=== PATIENT | female | born 1990 | race Caucasian/White ===

== ENCOUNTER 2016-12-01 13:30 | Emergency (ER) | payer OTHER ==
[2016-12-01 13:42] VITALS: TEMP 97.9
[2016-12-01] MEDS ORDERED: DIPH,PERTUS(ACELL)TETVAC-LF 0.5 ML VIAL IM ONE (13:52)
[2016-12-01] MEDS ORDERED: HYDROcodone/APAP 5-325MG 1 EACH TAB PO STA (13:53)
[2016-12-01 14:21] LABS: Basophils # (A) 0.1 k/uL (0-0.2); Basophils % (A) 0 %; CH 30.8; CHCM 33.7; Eosinophils # (A) 0.3 k/uL (0-0.7); Eosinophils % (A) 2 %; HCT 43.7 % (34.0-46.0); HDW 2.37; HGB 14.5 gm/dL (11.4-16.0); Luc # (Auto) 0.45; Luc % (Auto) 3; Lymphocytes # (A) 2.5 k/uL (1.0-4.8); Lymphocytes % (A) 16 %; MCH 30.5 pg (25.0-35.0); MCHC 33.1 g/dL (31.0-37.0); MCV 92.1 fL (80.0-100.0); Mean Platelet Volume 6.5; Monocytes # (A) 0.9 k/uL (0-1.0); Monocytes % (A) 6 %; Neutrophils # (A) 11.4 k/uL (1.3-7.7); Neutrophils % (A) 74 %; RBC 4.75 m/uL (3.80-5.40); RDW 12.9 % (11.5-15.5); WBC 15.5 k/uL (3.8-10.6); WBC (Perox) 16.82
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
[2016-12-01 14:36] LABS: Appearance,Urine Cloudy (Clear); Bacteria,Urine Rare /hpf; Bilirubin,Urine Negative (Negative); Glucose,Urine (UA) Negative (Negative); Ketones,Urine Negative (Negative); Leukocyte Esterase,Urine Negative (Negative); Mucus,Urine Rare /hpf; Nitrite,Urine Negative (Negative); PH, Urine 5.5 (5.0-8.0); Particle Count 10032; Protein,Urine Trace (Negative); RBC,Urine 3 /hpf (0-5); Specific Gravity,Urine 1.021 (1.001-1.035); Squamous Epithelial Cell,Urine 3 /hpf (0-4); UA Billing (MACRO vs. MICRO) MICRO; Urobilinogen,Urine <2.0 mg/dL (<2.0); WBC,Urine 3 /hpf (0-5)
[2016-12-01 14:45] LABS: ALT 32 U/L (9-52); AST 19 U/L (14-36); Alcohol <10 mg/dL; Alkaline Phosphatase 85 U/L (38-126); Anion Gap 11 mmol/L; Blood Urea Nitrogen 14 mg/dL (7-17); Calcium 9.3 mg/dL (8.4-10.2); Carbon Dioxide 26 mmol/L (22-30); Chloride 103 mmol/L (98-107); Glucose 96 mg/dL (74-99); Non-African American GFR(MDRD) >60 (>60 ml/min/1.73 sqM); Potassium 4.4 mmol/L (3.5-5.1); Sodium 140 mmol/L (137-145); Total Bilirubin 0.6 mg/dL (0.2-1.3); Total Protein 7.4 g/dL (6.3-8.2)
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
[2016-12-01 15:59] VITALS: BP 118/56; PULSE 70; RESP 16
== END 2016-12-01 15:58 | disposition home or self-care (01) ==
LOC: EC 13:30
DX: S80.12XA Contusion of left lower leg, initial encounter (principal); S09.90XA Unspecified injury of head, initial encounter; F17.200 Nicotine dependence, unspecified, uncomplicated; Z23 Encounter for immunization; V48.5XXA Car driver injured in noncollision transport accident in traffic accident, initial encounter; Y92.410 Unspecified street and highway as the place of occurrence of the external cause
CPT/HCPCS: 36415; 70450; 71010; 72125; 72170; 80053; 80306; 80320; 81001; 81025; 84484; 85025; 86850; 86900; 86901; 90471; 90715; 93005; 99285

== ENCOUNTER → 2016-12-19 | Outpatient (CLI) | payer OTHER ==
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
== END | disposition home or self-care (01) ==
LOC: RADUSWWP 10:18
PROVIDERS: ATTEND Family Medicine
DX: M79.605 Pain in left leg (principal)

== ENCOUNTER 2018-03-17 03:19 | Emergency (ER) | payer OTHER ==
[2018-03-17] MEDS ORDERED: ONDANSETRON 4 MG/2 ML VIAL IVP STA (03:40)
[2018-03-17] MEDS ORDERED: LORazepam 2 MG/ML INJ IV STA (03:49)
[2018-03-17] MEDS ORDERED: SODIUM CHLORIDE 0.9% 1,000 ML IV STA (03:52)
[2018-03-17 04:36] VITALS: RESP 16
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
--- NOTE | 2018-03-17 06:38 | XR ---
EXAMINATION TYPE: XR chest 1V DATE OF EXAM: 03/17/2018 COMPARISON: 12/01/2016 HISTORY: Alcohol poisoning TECHNIQUE: Single frontal view of the chest is obtained. FINDINGS: Heart and mediastinum are normal. Lungs are clear. Diaphragm is normal. There are chest le ads. IMPRESSION: Normal chest
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
[2018-03-17 07:13] LABS: Basophils # (A) 0.1 k/uL (0-0.2); Basophils % (A) 1 %; Eosinophils # (A) 0.1 k/uL (0-0.7); Eosinophils % (A) 0 %; HCT 42.4 % (34.0-46.0); HGB 14.2 gm/dL (11.4-16.0); Lymphocytes % (A) 16 %; MCH 30.2 pg (25.0-35.0); MCHC 33.5 g/dL (31.0-37.0); MCV 90.2 fL (80.0-100.0); Mean Platelet Volume 7.3; Monocytes # (A) 0.5 k/uL (0-1.0); Monocytes % (A) 4 %; Neutrophils # (A) 9.7 k/uL (1.3-7.7); Neutrophils % (A) 77 %; Platelet Count 269 k/uL (150-450); RBC 4.71 m/uL (3.80-5.40); RDW 12.9 % (11.5-15.5); WBC 12.6 k/uL (3.8-10.6)
[2018-03-17 07:17] VITALS: BP 90/46; PULSE 71
[2018-03-17 07:24] LABS: ALT 29 U/L (9-52); AST 20 U/L (14-36); Albumin 4.1 g/dL (3.5-5.0); Alcohol 19 mg/dL; Alkaline Phosphatase 61 U/L (38-126); Anion Gap 14 mmol/L; Blood Urea Nitrogen 11 mg/dL (7-17); Calcium 8.4 mg/dL (8.4-10.2); Carbon Dioxide 20 mmol/L (22-30); Chloride 108 mmol/L (98-107); Glucose 88 mg/dL (74-99); Potassium 4.1 mmol/L (3.5-5.1); Sodium 142 mmol/L (137-145); Total Bilirubin 0.4 mg/dL (0.2-1.3); Total Protein 6.5 g/dL (6.3-8.2)
[2018-03-17 07:43] VITALS: TEMP 97.8
== END 2018-03-17 08:01 | disposition home or self-care (01) ==
LOC: EC 03:19
DX: F10.120 Alcohol abuse with intoxication, uncomplicated (principal); F41.9 Anxiety disorder, unspecified; F17.200 Nicotine dependence, unspecified, uncomplicated
CPT/HCPCS: 36415; 80053; 85025; 82271; 80320; 71045; 70450; 99284; 96374; 96375; 96361 ×3; J2060; J2405

== ENCOUNTER 2021-11-09 06:02 | Observation (INO) | payer OTHER ==
[2021-11-09] MEDS ORDERED: ONDANSETRON 4 MG/2 ML VIAL IVP STA (06:31)
[2021-11-09] MEDS ORDERED: SODIUM CHLORIDE 0.9% 500 ML 500 ML IV STA (06:31)
[2021-11-09] MEDS ORDERED: MORPHINE SULFATE 4 MG/ML SYRINGE IV STA (06:31)
--- NOTE | 2021-11-09 06:41 | ED ---
Abdominal Pain HPI <DarDillon coronado Jefe - Last Filed: 11/09/21 08:55> - General Source: patient Mode of arrival: ambulatory Limitations: no limitations - History of Present Illness MD Complaint: abdominal pain <Caroline Morales - Last Filed: 11/09/21 09:07> - General Chief Complaint: Abdominal Pain Stated Complaint: RT flank pain Time Seen by Provider: 11/09/21 06:26 - History of Present Illness Initial Comments: Patient is a 31-year-old female with a past medical history of umbilical cyst and section who presents with abdominal pain since 7 PM last night. Patient states she was at work when she started to experience throbbing/aching pain in the right upper quadrant. Patient reports the pain worsened with time, currently 12/10 in severity. Pain is constant and radiates to the left upper quadrant and right lower back. Patient states that eating worsens. Patient has associated nausea, vomiting, and chills. She denies chest pain, shortness of breath, flank pain, dysuria, urinary frequency/hesitancy. Denies recent alcohol use. Patient reports she was recently COVID-19 tested. (Caroline Morales) - Related Data Home Medications Medication Instructions Recorded Confirmed Ibuprofen [Motrin] 200 - 400 mg PO Q6HR PRN 12/01/16 12/01/16 Previous Rx's Medication Instructions Recorded Ibuprofen [Motrin] 800 mg PO Q8HR PRN #20 tab 12/01/16 traMADol HCl [Ultram] 50 mg PO Q6H PRN #20 tab 12/01/16 Famotidine [Pepcid] 20 mg PO BID #14 tablet 03/17/18 Ondansetron Odt [Zofran ODT] 4 mg PO Q8HR PRN #10 tab 03/17/18 Allergies Allergy/AdvReac Type Severity Reaction Status Date / Time No Known Allergies Allergy Verified 11/09/21 06:06 Review of Systems ROS Other: All systems not noted in ROS Statement are negative. <Dillon Orozco - Last Filed: 11/09/21 08:55> ROS Other: All systems not noted in ROS Statement are negative. <Caroline Morales - Last Filed: 11/09/21 09:07> ROS Statement: Those systems with pertinent positive or pertinent negative responses have been documented in the HPI. Past Medical History Additional Past Medical History / Comment(s): UMBILICAL CYST History of Any Multi-Drug Resistant Organisms: None Reported Past Surgical History: Section, Tonsillectomy Additional Past Anesthesia/Blood Transfusion Reaction / Comment(s): STATES "I BECOME VERY IRRITABLE" Past Psychological History: Anxiety Smoking Status: Current every day smoker Past Alcohol Use History: Heavy, Occasional Past Drug Use History: Marijuana - Past Family History Mother Family Medical History: Deep Vein Thrombosis (DVT) <Caroline Morales - Last Filed: 11/09/21 09:07> General Exam Limitations: no limitations General appearance: alert, in no apparent distress Head exam: Present: atraumatic, normocephalic, normal inspection Eye exam: Present: normal appearance, PERRL, EOMI. Absent: scleral icterus, conjunctival injection, periorbital swelling ENT exam: Present: normal exam, mucous membranes moist Neck exam: Present: normal inspection. Absent: tenderness, meningismus, lymphadenopathy Respiratory exam: Present: normal lung sounds bilaterally. Absent: respiratory distress, wheezes, rales, rhonchi, stridor Cardiovascular Exam: Present: normal rhythm, tachycardia, normal heart sounds. Absent: systolic murmur, diastolic murmur, rubs, gallop, clicks GI/Abdominal exam: Present: soft, tenderness, rebound, normal bowel sounds. Absent: distended, guarding, rigid, pulsatile mass Expanded GI/Abdominal exam: Present: Renae's sign, tenderness at McBurney's Point. Absent: Rovsing's sign, ascites Back exam: Present: normal inspection, tenderness (lower right side ). Absent: full ROM, CVA tenderness (R), CVA tenderness (L), muscle spasm, paraspinal tenderness, vertebral tenderness Neurological exam: Present: alert, oriented X3, CN II-XII intact Psychiatric exam: Present: normal affect, normal mood Skin exam: Present: warm, dry, intact, normal color. Absent: rash <Caroline Morales - Last Filed: 11/09/21 09:07> Course <Caroline Morales - Last Filed: 11/09/21 09:07> Vital Signs 11/09/21 11/09/21 06:05 07:49 Temperature 97.7 F 97.8 F Pulse Rate 128 H 82 Respiratory 24 17 Rate Blood Pressure 150/102 137/94 O2 Sat by Pulse 97 95 Oximetry - Reevaluation(s) Reevaluation #1: She resting in bed, much more relaxed than on arrival. Pulse 73 bpm. pain 8/10. 11/09/21 07:39 11/09/21 07:41 11/09/21 08:27 (Carolien Morales) Medical Decision Making - Lab Data Result diagrams: 11/09/21 06:42 11/09/21 06:42 <Dillon Orozco - Last Filed: 11/09/21 08:55> - Lab Data Result diagrams: 11/09/21 06:42 11/09/21 06:42 <Caroline Morales - Last Filed: 11/09/21 09:07> - Medical Decision Making Case discussed with Dr. Culp who will admit. (Dillon Orozco) Patient has elevated WBC at 20.6. Ultrasound limited reveals a hyperechoic, mobile shadowing stone seen 1.911.1 cm. Hepatomegaly. Patient will be admitted to general surgery for further evaluation and treatment due to high white count, large gallstone, uncontrolled pain, and nausea/vomiting. (Caroline Morales) - Lab Data Lab Results 11/09/21 11/09/21 Range/Units 06:42 06:42 WBC 20.6 H (3.8-10.6) k/uL RBC 5.05 (3.80-5.40) m/uL Hgb 15.6 (11.4-16.0) gm/dL Hct 46.7 H (34.0-46.0) % MCV 92.5 (80.0-100.0) fL MCH 31.0 (25.0-35.0) pg MCHC 33.5 (31.0-37.0) g/dL RDW 12.9 (11.5-15.5) % Plt Count 355 (150-450) k/uL MPV 7.5 Sodium 136 L (137-145) mmol/L Potassium 4.3 (3.5-5.1) mmol/L Chloride 102 (98-107) mmol/L Carbon Dioxide 22 (22-30) mmol/L Anion Gap 12 mmol/L BUN 16 (7-17) mg/dL Creatinine 0.93 (0.52-1.04) mg/dL Est GFR (CKD-EPI)AfAm >90 (>60 ml/min/1.73 sqM) Est GFR (CKD-EPI)NonAf 82 (>60 ml/min/1.73 sqM) Glucose 119 H (74-99) mg/dL Calcium 9.8 (8.4-10.2) mg/dL Total Bilirubin 0.8 (0.2-1.3) mg/dL AST 25 (14-36) U/L ALT 19 (4-34) U/L Alkaline Phosphatase 77 (38-126) U/L Total Protein 7.7 (6.3-8.2) g/dL Albumin 4.5 (3.5-5.0) g/dL Lipase 82 (23-300) U/L Disposition <Dillon Orozco - Last Filed: 11/09/21 08:55> Time of Disposition: 09:07 <Caroline Morales - Last Filed: 11/09/21 09:07> Clinical Impression: Cholelithiasis Disposition: ADMITTED IP TO THIS [facility] Condition: Fair Referrals: None,Stated [Primary Care Provider] - 1-2 days
[2021-11-09 06:56] LABS: Basophils # (A) 0.1 k/uL (0-0.2); Basophils % (A) 1 %; Eosinophils # (A) 0.5 k/uL (0-0.7); Eosinophils % (A) 2 %; HCT 46.7 % (34.0-46.0); HGB 15.6 gm/dL (11.4-16.0); Lymphocytes # (A) 5.2 k/uL (1.0-4.8); Lymphocytes % (A) 25 %; MCHC 33.5 g/dL (31.0-37.0); MCV 92.5 fL (80.0-100.0); Mean Platelet Volume 7.5; Monocytes # (A) 1.3 k/uL (0-1.0); Monocytes % (A) 6 %; Neutrophils # (A) 13.1 k/uL (1.3-7.7); Neutrophils % (A) 64 %; Platelet Count 355 k/uL (150-450); RBC 5.05 m/uL (3.80-5.40); RDW 12.9 % (11.5-15.5); WBC 20.6 k/uL (3.8-10.6)
[2021-11-09 07:16] LABS: ALT 19 U/L (4-34); AST 25 U/L (14-36); African American GFR (CKD) >90 (>60 ml/min/1.73 sqM); Albumin 4.5 g/dL (3.5-5.0); Alkaline Phosphatase 77 U/L (38-126); Anion Gap 12 mmol/L; Blood Urea Nitrogen 16 mg/dL (7-17); Calcium 9.8 mg/dL (8.4-10.2); Carbon Dioxide 22 mmol/L (22-30); Chloride 102 mmol/L (98-107); Glucose 119 mg/dL (74-99); Lipase 82 U/L (23-300); Non-African American GFR(CKD) 82 (>60 ml/min/1.73 sqM); Potassium 4.3 mmol/L (3.5-5.1); Sodium 136 mmol/L (137-145); Total Bilirubin 0.8 mg/dL (0.2-1.3); Total Protein 7.7 g/dL (6.3-8.2)
[2021-11-09] MEDS ORDERED: SODIUM CHLORIDE 0.9% 1,000 ML IV STA (07:28)
--- NOTE | 2021-11-09 07:46 | US ---
EXAMINATION TYPE: US abdomen limited DATE OF EXAM: 11/09/2021 COMPARISON: NONE CLINICAL HISTORY: abdominal pain. EC patient with severe epigastric and RUQ pain x hours and radiatin g to back, nausea and vomiting. EXAM MEASUREMENTS: Liver Length: 20.2 cm Gallbladder Wall: 0.2 cm CBD: 0.6 cm Right Kidney: 12.0 x 6.0 x 5.0 cm Pancreas: hyperechoic Liver: no masses seen ; enlarge liver as is greater than 18cm. Gallbladder: hyperechoic, mobile and shadowing stone seen = 1.9 x 1.0 x 1.1cm. Evidence for sonographic Renae's sign: yes CBD: wnl Right Kidney: No hydronephrosis or masses seen; perirenal fat is seen adjacent to mid lower pole. IMPRESSION: 1. Cholelithiasis. 2. Hepatomegaly
[2021-11-09] MEDS ORDERED: HYDROmorphone 1 MG/ML 1 ML SYRINGE IVP STA (08:24)
[2021-11-09] MEDS ORDERED: HYDROmorphone 0.5 MG/0.5 ML SYRINGE IVP PRN (08:51)
[2021-11-09] MEDS ORDERED: HYDROmorphone 1 MG/ML 1 ML SYRINGE IVP PRN (08:51)
[2021-11-09] MEDS ORDERED: ONDANSETRON 4 MG/2 ML VIAL IVP PRN (08:51)
[2021-11-09] MEDS ORDERED: NALOXONE 0.4 MG/ML 1 ML VIAL IV PRN (08:51)
[2021-11-09 09:11] LABS: Appearance,Urine Cloudy (Clear); Bilirubin,Urine Negative (Negative); Blood,Urine Negative (Negative); Color,Urine Yellow; Glucose,Urine (UA) Negative (Negative); Ketones,Urine Trace (Negative); Leukocyte Esterase,Urine Large (Negative); Mucus,Urine Rare /hpf; Nitrite,Urine Negative (Negative); PH, Urine 6.5 (5.0-8.0); Protein,Urine Trace (Negative); RBC,Urine 10 /hpf (0-5); Squamous Epithelial Cell,Urine 6 /hpf (0-4); WBC,Urine 42 /hpf (0-5)
[2021-11-09 10:16] LABS: INR 0.9 (<1.2); Partial Thromboplastin Time 25.2 sec (22.0-30.0); Prothrombin Time 9.7 sec (9.0-12.0)
[2021-11-09] MEDS: SODIUM CHLORIDE 0.9% 1,000 ML IV SCH ×2 (10:26→17:46)
[2021-11-09 10:48] LABS: RBC Morphology Normal
--- NOTE | 2021-11-09 11:32 | P.GSHP ---
<Hodan Rajput - Last Filed: 11/09/21 11:25> History of Present Illness H&P Date: 11/09/21 CHIEF COMPLAINT: Abdominal pain HISTORY OF PRESENT ILLNESS: This is a 31-year-old female who presented to the hospital with right upper quadrant abdominal pain that radiated to the back. Pain started around 6 PM last night. Patient reports that the pain was very severe and sharp. S she admits to chills and sweats. Also had nausea and vomiting. No actual fever reported. Eating does make symptoms worse. Abdominal ultrasound had shown cholelithiasis. Hepatomegaly. Positive Renae's sign. Patient had evidence of leukocytosis on admission was tachycardic with elevated BP. She has received IV antibiotics and pain medication in the ER. Past surgical history includes and removal of umbilical cyst. PAST MEDICAL HISTORY: Anxiety PAST SURGICAL HISTORY: , removal of umbilical cyst MEDICATIONS: See list. ALLERGIES: See list. SOCIAL HISTORY: No illicit drug use. Smoker REVIEW OF SYSTEMS: CONSTITUTIONAL: Denies fever or chills. HEENT: Denies blurred vision, vision changes, or eye pain. Denies hemoptysis CARDIOVASCULAR: Denies chest pain or pressure. RESPIRATORY: No shortness of breath. GASTROINTESTINAL: See HPI for pertinent findings HEMATOLOGIC: Denies bleeding disorders. GENITOURINARY: Denies any blood in urine or increased urinary frequency. SKIN: Denies pruitis. Denies rash. PHYSICAL EXAM: VITAL SIGNS: Reviewed GENERAL: Well-developed in no acute distress. HEENT: No sclera icterus. Extraocular movements grossly intact. Moist buccal mucosa. Head is atraumatic, normocephalic. No nasal drainage. ABDOMEN: Soft. Obese. Nondistended. Tenderness with palpation of right upper quadrant NEUROLOGIC: Alert and oriented. Cranial nerves II through XII grossly intact. LABORATORY DATA: WBC 20.6 Hgb 15.6 platelets 355 INR 0.9 Sodium 136 potassium 4.3 BUN 16 creatinine 0.93 LFTs normal Lipase 82 Lactic acid 1.0 Urine hCG negative IMAGING: Abdominal ultrasound had shown cholelithiasis. Hepatomegaly. Positive Renae's sign. ASSESSMENT: 1. Acute cholecystitis 2. Cholelithiasis PLAN: -Patient scheduled for laparoscopic cholecystectomy today with Dr. Culp -Keep patient nothing by mouth -Patient did receive 1 dose of Rocephin in the ER -Continue pain medication as needed -Continue Zofran as needed -Continue IV fluids Physician Router Setter note has been reviewed by physician. Signing provider agrees with the documented findings, assessment, and plan of care. Past Medical History Additional Past Medical History / Comment(s): UMBILICAL CYST History of Any Multi-Drug Resistant Organisms: None Reported Past Surgical History: Section, Tonsillectomy Additional Past Anesthesia/Blood Transfusion Reaction / Comment(s): STATES "I BE COME VERY IRRITABLE" Past Psychological History: Anxiety Smoking Status: Current every day smoker Past Alcohol Use History: Heavy, Occasional Additional Past Alcohol Use History / Comment(s): SMOKES 1/2-1PPD, SINCE AGE 16 (2005) Past Drug Use History: Marijuana Additional Drug Use History / Comment(s): NIGHTLY USE, INSTRUCTED TO HOLD 24HRS PRIOR TO PROCEDURE - Past Family History Mother Family Medical History: Deep Vein Thrombosis (DVT) Medications and Allergies Home Medications Medication Instructions Recorded Confirmed Type Acetaminophen Tab [Tylenol Tab] 500 mg PO Q6H PRN 11/09/21 11/09/21 History Allergies Allergy/AdvReac Type Severity Reaction Status Date / Time No Known Allergies Allergy Verified 11/09/21 09:25 Surgical - Exam Vital Signs Temp Pulse Resp BP Pulse Ox 97.7 F 128 H 24 150/102 97 11/09/21 06:05 11/09/21 06:05 11/09/21 06:05 11/09/21 06:05 11/09/21 06:05 Results - Labs 11/09/21 06:42 11/09/21 06:42 Abnormal Lab Results - Last 24 Hours (Table) 11/09/21 11/09/21 11/09/21 Range/Units 06:42 06:42 08:00 WBC 20.6 H (3.8-10.6) k/uL Hct 46.7 H (34.0-46.0) % Neutrophils # 13.1 H (1.3-7.7) k/uL Lymphocytes # 5.2 H (1.0-4.8) k/uL Monocytes # 1.3 H (0-1.0) k/uL Sodium 136 L (137-145) mmol/L Glucose 119 H (74-99) mg/dL Urine Appearance Cloudy H (Clear) Urine Protein Trace H (Negative) Urine Ketones Trace H (Negative) Ur Leukocyte Esterase Large H (Negative) Urine RBC 10 H (0-5) /hpf Urine WBC 42 H (0-5) /hpf Ur Squamous Epith Cells 6 H (0-4) /hpf Urine Mucus Rare H (None) /hpf Diabetes panel 11/09/21 Range/Units 06:42 Sodium 136 L (137-145) mmol/L Potassium 4.3 (3.5-5.1) mmol/L Chloride 102 (98-107) mmol/L Carbon Dioxide 22 (22-30) mmol/L BUN 16 (7-17) mg/dL Creatinine 0.93 (0.52-1.04) mg/dL Glucose 119 H (74-99) mg/dL Calcium 9.8 (8.4-10.2) mg/dL AST 25 (14-36) U/L ALT 19 (4-34) U/L Alkaline Phosphatase 77 (38-126) U/L Total Protein 7.7 (6.3-8.2) g/dL Albumin 4.5 (3.5-5.0) g/dL Calcium panel 11/09/21 Range/Units 06:42 Calcium 9.8 (8.4-10.2) mg/dL Albumin 4.5 (3.5-5.0) g/dL Pituitary panel 11/09/21 Range/Units 06:42 Sodium 136 L (137-145) mmol/L Potassium 4.3 (3.5-5.1) mmol/L Chloride 102 (98-107) mmol/L Carbon Dioxide 22 (22-30) mmol/L BUN 16 (7-17) mg/dL Creatinine 0.93 (0.52-1.04) mg/dL Glucose 119 H (74-99) mg/dL Calcium 9.8 (8.4-10.2) mg/dL Adrenal panel 11/09/21 Range/Units 06:42 Sodium 136 L (137-145) mmol/L Potassium 4.3 (3.5-5.1) mmol/L Chloride 102 (98-107) mmol/L Carbon Dioxide 22 (22-30) mmol/L BUN 16 (7-17) mg/dL Creatinine 0.93 (0.52-1.04) mg/dL Glucose 119 H (74-99) mg/dL Calcium 9.8 (8.4-10.2) mg/dL Total Bilirubin 0.8 (0.2-1.3) mg/dL AST 25 (14-36) U/L ALT 19 (4-34) U/L Alkaline Phosphatase 77 (38-126) U/L Total Protein 7.7 (6.3-8.2) g/dL Albumin 4.5 (3.5-5.0) g/dL <Herrera Culp - Last Filed: 11/09/21 12:15> History of Present Illness I have personally seen and examined the patient, reviewed the SCALEMAN /PAs history, exam and MDM and agree with the assessment and plan as written. Based on total visit time, I have performed more than 50% of the visit. As above. Patient with right upper quadrant pain that began yesterday evening. She had mild episodes last week as well. Ultrasound shows an impacted stone at the neck with mild gallbladder wall thickening. White blood cell count significantly elevated. Patient remains tender right upper quadrant. We'll proceed with laparoscopic, possible open cholecystectomy either later this afternoon or tomorrow. Risks of bleeding, infection, bile leak, bile duct injury, retained common bile duct stone, trocar injury, conversion to an open procedure, hernia, anesthesia related complications were reviewed. The patient understands and wishes to proceed. Surgical - Exam Vital Signs Temp Pulse Resp BP Pulse Ox 97.7 F 128 H 24 150/102 97 11/09/21 06:05 11/09/21 06:05 11/09/21 06:05 11/09/21 06:05 11/09/21 06:05 Results - Labs 11/09/21 06:42 11/09/21 06:42 Abnormal Lab Results - Last 24 Hours (Table) 11/09/21 11/09/21 11/09/21 Range/Units 06:42 06:42 08:00 WBC 20.6 H (3.8-10.6) k/uL Hct 46.7 H (34.0-46.0) % Neutrophils # 13.1 H (1.3-7.7) k/uL Lymphocytes # 5.2 H (1.0-4.8) k/uL Monocytes # 1.3 H (0-1.0) k/uL Sodium 136 L (137-145) mmol/L Glucose 119 H (74-99) mg/dL Urine Appearance Cloudy H (Clear) Urine Protein Trace H (Negative) Urine Ketones Trace H (Negative) Ur Leukocyte Esterase Large H (Negative) Urine RBC 10 H (0-5) /hpf Urine WBC 42 H (0-5) /hpf Ur Squamous Epith Cells 6 H (0-4) /hpf Urine Mucus Rare H (None) /hpf Diabetes panel 11/09/21 Range/Units 06:42 Sodium 136 L (137-145) mmol/L Potassium 4.3 (3.5-5.1) mmol/L Chloride 102 (98-107) mmol/L Carbon Dioxide 22 (22-30) mmol/L BUN 16 (7-17) mg/dL Creatinine 0.93 (0.52-1.04) mg/dL Glucose 119 H (74-99) mg/dL Calcium 9.8 (8.4-10.2) mg/dL AST 25 (14-36) U/L ALT 19 (4-34) U/L Alkaline Phosphatase 77 (38-126) U/L Total Protein 7.7 (6.3-8.2) g/dL Albumin 4.5 (3.5-5.0) g/dL Calcium panel 11/09/21 Range/Units 06:42 Calcium 9.8 (8.4-10.2) mg/dL Albumin 4.5 (3.5-5.0) g/dL Pituitary panel 11/09/21 Range/Units 06:42 Sodium 136 L (137-145) mmol/L Potassium 4.3 (3.5-5.1) mmol/L Chloride 102 (98-107) mmol/L Carbon Dioxide 22 (22-30) mmol/L BUN 16 (7-17) mg/dL Creatinine 0.93 (0.52-1.04) mg/dL Glucose 119 H (74-99) mg/dL Calcium 9.8 (8.4-10.2) mg/dL Adrenal panel 11/09/21 Range/Units 06:42 Sodium 136 L (137-145) mmol/L Potassium 4.3 (3.5-5.1) mmol/L Chloride 102 (98-107) mmol/L Carbon Dioxide 22 (22-30) mmol/L BUN 16 (7-17) mg/dL Creatinine 0.93 (0.52-1.04) mg/dL Glucose 119 H (74-99) mg/dL Calcium 9.8 (8.4-10.2) mg/dL Total Bilirubin 0.8 (0.2-1.3) mg/dL AST 25 (14-36) U/L ALT 19 (4-34) U/L Alkaline Phosphatase 77 (38-126) U/L Total Protein 7.7 (6.3-8.2) g/dL Albumin 4.5 (3.5-5.0) g/dL
[2021-11-09] MEDS: LEVOFLOXACIN 500MG-D5W PMX 500 MG in DEXTROSE/WATER 1 100ML.BAG IVPB SCH (15:56)
[2021-11-09] MEDS ORDERED: BUPIVACAIN-EPI 0.25%-1:200,000 30 ML VIAL SQ ONE ×2 (17:23→18:23)
[2021-11-09] MEDS ORDERED: LIDOCAINE 1% INJ 10MG/ML (20 ML MDV) ONE (17:52)
[2021-11-09] MEDS ORDERED: GLYCOPYRROLATE 0.2 MG/ML 2 ML VIAL ONE (17:52)
[2021-11-09] MEDS ORDERED: PROPOFOL 10 MG/ML 20 ML VIAL IV ONE (17:52)
[2021-11-09] MEDS ORDERED: MIDAZOLAM 2 MG/2 ML VIAL ONE (17:52)
[2021-11-09] MEDS ORDERED: NEOSTIGMINE 1 MG/ML 10 ML VIAL ONE (17:52)
[2021-11-09] MEDS ORDERED: fentaNYL (PF) 50 MCG/ML 2 ML AMP ONE (17:52)
[2021-11-09] MEDS ORDERED: ROCURONIUM 10 MG/ML (5 ML VIAL) IV ONE (17:52)
[2021-11-09] MEDS ORDERED: SUCCINYLCHOLINE CHLORIDE 100 MG/5 ML SYR IV ONE (17:52)
[2021-11-09] MEDS ORDERED: KETAMINE 10 MG/ML 20 ML VIAL ONE (17:52)
[2021-11-09] MEDS ORDERED: HYDROmorphone (PF) 1 MG/ML ONE (17:52)
[2021-11-09] MEDS ORDERED: KETOROLAC 15 MG/ML 1 ML VIAL ONE (17:52)
[2021-11-09] MEDS ORDERED: IV FLUID CONTINUATION 1,000 ML IV ONE (18:00)
[2021-11-09] MEDS ORDERED: SODIUM CHLORIDE 0.9% 100 ML with ceFAZolin 2,000 MG IV ONE ×2 (18:18)
[2021-11-09] MEDS ORDERED: LACTATED RINGERS 1,000 ML IV ONE (18:47)
--- NOTE | 2021-11-09 18:51 | P.OP ---
Date of Procedure: 11/09/21 Procedure(s) Performed: PREOPERATIVE DIAGNOSIS: Acute cholecystitis POSTOPERATIVE DIAGNOSIS: Same PROCEDURE: Laparoscopic cholecystectomy SURGEON: Robbi EBL: Minimal see anesthesia record ANESTHESIA: Gen. COMPLICATIONS: None OPERATIVE PROCEDURE: The patient was brought and placed on the operating room table in the supine position. The patient was placed under general anesthesia at that time. The abdomen was prepped and draped in the usual sterile fashion. A small curvilinear supraumbilical incision was made. The fascia was grasped with the Mitchell forceps. The fascia was retracted anteriorly. The Veress needle was advanced into the peritoneal cavity. The saline drop test was normal. Insufflation took place up to 15 mmHg. A 5 mm optical trocar was advanced and the peritoneal cavity. 2 additional 5 mm trochars were placed in the right upper quadrant under direct visualization. A 12 mm trocar was advanced into the epigastric incision site. The gallbladder was mildly inflamed. The gallbladder was retracted superiorly and laterally. The peritoneum overlying the infundibulum was bluntly dissected. The patient's cystic duct was visualized. The junction between the cystic duct common and hepatic duct was identified. The critical view of safety was achieved after blunt dissection. The cystic duct was then divided after placement of 3 12 mm clips on the patient's side and one on the specimen side. The cystic artery was identified and clipped as well. A small vessel was seen along the gallbladder fossa and clipped as well. The gallbladder was then removed from the liver bed using electrocautery. The gallbladder was then removed from the epigastric trocar site with an Endo Catch bag. The gallbladder fossa was irrigated with saline. There was no evidence of any bleeding or biliary drainage seen. The fascia at the 12 millimeter site was closed using a Phil-Vonda 0 Vicryl stitch. The trochars were then removed. The skin at all 4 sites was closed using a 4-0 Monocryl stitch. Skin glue was utilized on the incision sites. At the end of this procedure the sponge and needle counts were correct. DISPOSITION: Stable to the recovery room
[2021-11-09] MEDS ORDERED: ONDANSETRON 4 MG/2 ML VIAL IVP ONE (19:15)
[2021-11-10] MEDS: KETOROLAC 30 MG/ML 1 ML VIAL IVP SCH ×4 (00:21→18:02)
[2021-11-10] MEDS: SODIUM CHLORIDE 0.9% 1,000 ML IV SCH ×2 (00:25→10:00)
[2021-11-10] MEDS: HYDROcodone/APAP 7.5-325MG 1 EACH TAB PO PRN ×3 (02:45→16:33)
[2021-11-10 10:46] LABS: Basophils # (A) 0.1 k/uL (0-0.2); Basophils % (A) 1 %; Eosinophils # (A) 0.2 k/uL (0-0.7); Eosinophils % (A) 2 %; HGB 14.6 gm/dL (11.4-16.0); Lymphocytes # (A) 3.1 k/uL (1.0-4.8); Lymphocytes % (A) 25 %; MCH 31.2 pg (25.0-35.0); MCHC 32.4 g/dL (31.0-37.0); MCV 96.4 fL (80.0-100.0); Mean Platelet Volume 7.4; Monocytes # (A) 0.9 k/uL (0-1.0); Monocytes % (A) 7 %; Neutrophils # (A) 7.9 k/uL (1.3-7.7); Neutrophils % (A) 63 %; Platelet Count 300 k/uL (150-450); RBC 4.67 m/uL (3.80-5.40); RDW 13.4 % (11.5-15.5); WBC 12.5 k/uL (3.8-10.6)
--- NOTE | 2021-11-10 11:39 | P.PN ---
Subjective Progress Note Date: 11/10/21 CHIEF COMPLAINT: Acute cholecystitis HISTORY OF PRESENT ILLNESS: Patient is postop day #1 status post laparoscopic Cholecystectomy. Patient complaining of abdominal pain this morning. She reports that she that she is unable to empty her bladder completely. Bladder scan completed showing no evidence of urinary retention. Denies any nausea vomiting. She did not eat anything last night and had decreased appetite this morning. Afebrile. WBC 20.6 down to 12.5 hemoglobin 14.6 platelets 300. Patient on room air satting at 98% PHYSICAL EXAM: VITAL SIGNS: Reviewed. GENERAL: Well-developed in no acute distress. HEENT: No sclera icterus. Extraocular movements grossly intact. Moist buccal mucosa. Head is atraumatic, normocephalic. ABDOMEN: Soft. Nondistended. Nontender. NEUROLOGIC: Alert and oriented. Cranial nerves II through XII grossly intact. ASSESSMENT: 1. Acute cholecystitis status post laparoscopic cholecystectomy PLAN: -Continue pain management -Continue antibiotics -Encouraged oral intake. Patient started with clear liquids this morning and will advance as tolerated -Encouraged patient to ambulate -Encouraged patient to use incentive spirometer -Patient did have wheezing and history of asthma. [facility] ordered -DVT prophylaxis subcu heparin Physician Tube Machine Operator Helper note has been reviewed by physician. Signing provider agrees with the documented findings, assessment, and plan of care. Objective - Vital Signs Vital signs: Vital Signs Temp 98.1 F 11/10/21 06:57 Pulse 54 L 11/10/21 06:57 Resp 17 11/10/21 09:12 BP 108/60 11/10/21 06:57 Pulse Ox 98 11/10/21 06:57 Intake & Output 11/09/21 11/10/21 11/10/21 18:59 06:59 18:59 Intake Total 820 200 Output Total 5 Balance 815 200 Weight 99.79 kg 99.79 kg Intake: IV 700 200 Oral 120 Output: Estimated Blood Loss 5 Other: Voiding Method Toilet # Voids 1 0 - Labs CBC & Chem 7: 11/10/21 09:40 11/09/21 06:42 Labs: Abnormal Lab Results - Last 24 Hours (Table) 11/10/21 Range/Units 09:40 WBC 12.5 H (3.8-10.6) k/uL Neutrophils # 7.9 H (1.3-7.7) k/uL Microbiology - Last 24 Hours (Table) 11/09/21 08:43 Blood Culture - Preliminary Blood No Growth after 24 hours 11/09/21 09:00 Blood Culture - Preliminary Blood No Growth after 24 hours 11/09/21 08:00 Urine Culture - Preliminary Urine,Voided
[2021-11-10] MEDS: IPRATROPIUM-ALBUTEROL 3 ML NEB INHALATION SCH ×2 (12:08→16:45)
[2021-11-10] MEDS: LEVOFLOXACIN 500MG-D5W PMX 500 MG in DEXTROSE/WATER 1 100ML.BAG IVPB SCH (13:42)
--- NOTE | 2021-11-10 17:43 | P.DS ---
Providers Date of admission: 11/09/21 09:14 Expected date of discharge: 11/10/21 Attending physician: Herrera Culp Primary care physician: Stated None Hospital Course: Patient was admitted yesterday through the emergency department for acute cholecystitis. Patient had significant leukocytosis which is improved today. Her pain likewise has gradually improved. She is tolerating liquid diet without nausea or vomiting. She would like to go home and eat. Patient had some cough and congestion earlier but states that is improved. She did have Covid recently she states. A Covid study was requested yesterday however I don't see any results on the computer. Patient is afebrile. Vital signs are stable. Abdomen: Soft, nondistended, incisions clean and dry, minimal tenderness. Will plan discharge at this time. Follow-up one week. Patient Condition at Discharge: Fair Plan - Discharge Summary New Discharge Prescriptions: No Action Acetaminophen Tab [Tylenol Tab] 500 mg PO Q6H PRN PRN Reason: Pain Or Fever > 100.5 Discharge Medication List Acetaminophen Tab [Tylenol Tab] 500 mg PO Q6H PRN 11/09/21 [History] Follow up Appointment(s)/Referral(s): None,Stated [Primary Care Provider] - 1-2 days
[2021-11-10] MEDS: HEPARIN SODIUM,PORCINE/PF 5,000 UNIT/0.5 ML SYRINGE SQ SCH (21:21)
[2021-11-11] MEDS: KETOROLAC 30 MG/ML 1 ML VIAL IVP SCH ×2 (00:11→06:29)
[2021-11-11 06:23] VITALS: RESP 15
[2021-11-11 07:37] VITALS: BP 118/74; TEMP 98.4
[2021-11-11] MEDS: HEPARIN SODIUM,PORCINE/PF 5,000 UNIT/0.5 ML SYRINGE SQ SCH (08:17)
[2021-11-11] MEDS: IPRATROPIUM-ALBUTEROL 3 ML NEB INHALATION SCH (08:59)
[2021-11-11 09:08] VITALS: PULSE 85
== END 2021-11-11 12:16 | disposition home or self-care (01) ==
LOC: EC 06:02 → 6NMEDSUR 09:14
PROVIDERS: ADMIT Surgery; ATTEND Surgery
DX: K80.12 Calculus of gallbladder with acute and chronic cholecystitis without obstruction (principal); F17.210 Nicotine dependence, cigarettes, uncomplicated; R16.0 Hepatomegaly, not elsewhere classified; J45.909 Unspecified asthma, uncomplicated; F41.9 Anxiety disorder, unspecified; Z87.19 Personal history of other diseases of the digestive system; Z86.16 Personal history of COVID-19; Z98.891 History of uterine scar from previous surgery; Z82.49 Family history of ischemic heart disease and other diseases of the circulatory system
CPT/HCPCS: 47562; 96374; 96375; 99285; 36415; 94640 ×2; 86900; 86901; 88304; 80053; 83605; 83690; 85025 ×2; 85610; 85730; 86850; 81001; 81025; 87040; 87086; 76705; G0378 ×3; J2250; J2270; J2710; J2405; J0690; J1956 ×2; J0696; J2001; J3010; J1885 ×3; J1170; J0330; J2704; J1644 ×2

== ENCOUNTER 2021-11-11 18:58 | Emergency (ER) | payer OTHER ==
[2021-11-11 19:03] VITALS: TEMP 97.3
[2021-11-11] MEDS ORDERED: SODIUM CHLORIDE 0.9% 1,000 ML IV STA (19:06)
[2021-11-11] MEDS ORDERED: ONDANSETRON 4 MG/2 ML VIAL IVP STA (19:14)
[2021-11-11] MEDS ORDERED: HYDROmorphone 1 MG/ML 1 ML SYRINGE IVP STA (19:14)
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
[2021-11-11 19:38] VITALS: RESP 16
[2021-11-11 19:53] LABS: Basophils # (A) 0.1 k/uL (0-0.2); Basophils % (A) 0 %; Eosinophils # (A) 0.4 k/uL (0-0.7); Eosinophils % (A) 3 %; HGB 13.7 gm/dL (11.4-16.0); Lymphocytes # (A) 2.6 k/uL (1.0-4.8); Lymphocytes % (A) 17 %; MCH 31.2 pg (25.0-35.0); MCHC 33.4 g/dL (31.0-37.0); MCV 93.5 fL (80.0-100.0); Mean Platelet Volume 7.8; Monocytes # (A) 1.2 k/uL (0-1.0); Monocytes % (A) 8 %; Neutrophils # (A) 10.7 k/uL (1.3-7.7); Neutrophils % (A) 70 %; Platelet Count 271 k/uL (150-450); RBC 4.38 m/uL (3.80-5.40); RDW 12.7 % (11.5-15.5); WBC 15.2 k/uL (3.8-10.6)
[2021-11-11 19:57] LABS: Appearance,Urine Cloudy (Clear); Bacteria,Urine Rare /hpf; Bilirubin,Urine Negative (Negative); Blood,Urine Small (Negative); Color,Urine Yellow; Glucose,Urine (UA) Negative (Negative); Ketones,Urine Negative (Negative); Leukocyte Esterase,Urine Large (Negative); Mucus,Urine Rare /hpf; Nitrite,Urine Negative (Negative); PH, Urine 5.5 (5.0-8.0); Protein,Urine Negative (Negative); RBC,Urine 12 /hpf (0-5); Specific Gravity,Urine 1.016 (1.001-1.035); Squamous Epithelial Cell,Urine 6 /hpf (0-4); Urobilinogen,Urine <2.0 mg/dL (<2.0); WBC,Urine 30 /hpf (0-5)
[2021-11-11 20:12] LABS: ALT 54 U/L (4-34); AST 40 U/L (14-36); African American GFR (CKD) >90 (>60 ml/min/1.73 sqM); Albumin 3.7 g/dL (3.5-5.0); Alkaline Phosphatase 73 U/L (38-126); Amylase 81 U/L (30-110); Anion Gap 10 mmol/L; Blood Urea Nitrogen 14 mg/dL (7-17); Calcium 9.2 mg/dL (8.4-10.2); Carbon Dioxide 22 mmol/L (22-30); Chloride 106 mmol/L (98-107); Glucose 98 mg/dL (74-99); Lipase 139 U/L (23-300); Non-African American GFR(CKD) >90 (>60 ml/min/1.73 sqM); Potassium 4.2 mmol/L (3.5-5.1); Sodium 138 mmol/L (137-145); Total Bilirubin 0.4 mg/dL (0.2-1.3); Total Protein 6.3 g/dL (6.3-8.2)
--- NOTE | 2021-11-11 20:45 | CT ---
EXAMINATION TYPE: CT abdomen pelvis w con DATE OF EXAM: 11/11/2021 COMPARISON: None HISTORY: abdominal pain post-op jeff CT DLP: 2204.6 mGycm Automated exposure control for dose reduction was used. CONTRAST: Performed with IV Contrast, patient injected with 100 mL of Isovue 300. Images obtained from the diaphragm to the floor of the pelvis with IV contrast. There is mild subsegmental atelectasis at the posterior lung bases. There is no pleural effusion. Hea rt size is normal. There is no pericardial effusion. There are clips from cholecystectomy. Liver spleen stomach pancreas appear intact. Bile duct are nond ilated. There is no adrenal mass. Kidneys show satisfactory contrast opacification. There is no hydronephrosi s. Ureters are not dilated. There is no retroperitoneal adenopathy. Bladder distends smoothly. Uterus is anteverted. There is IUD in the uterine fundus in good position. There is no inguinal hernia. The re is no evidence of pelvic mass. There is subcutaneous density and tiny air bubbles consistent with surgery site of laparoscopic jeff cystectomy. The appendix appears normal and is medial. There is no mesenteric edema. There is no ascites or free air. There is no bowel obstruction. The lum bar vertebrae have normal alignment. There is no compression fracture. Disc spaces are fairly normal. Bony pelvis is intact. The hip joints are intact. IMPRESSION: Negative CT scan of the abdomen and pelvis. Normal appendix. Postsurgical changes noted.
[2021-11-11] MEDS ORDERED: NITROFURANTOIN MONOHYD/M-CRYST 100 MG CAP PO STA (21:21)
[2021-11-11 22:16] VITALS: BP 120/95; PULSE 84
== END 2021-11-11 22:10 | disposition home or self-care (01) ==
LOC: EC 18:58
DX: S30.1XXA Contusion of abdominal wall, initial encounter (principal); N39.0 Urinary tract infection, site not specified; F41.9 Anxiety disorder, unspecified; F17.200 Nicotine dependence, unspecified, uncomplicated; Z72.89 Other problems related to lifestyle; F12.90 Cannabis use, unspecified, uncomplicated
CPT/HCPCS: 36415; 80053; 82150; 83690; 85025; 81001; 81025; 87086; 74177; 99284; 96374; 96375; 96361; J2405; J1170; Q9967

== ENCOUNTER → 2022-03-16 | Outpatient (CLI) | payer OTHER ==
--- NOTE | 2022-03-16 19:47 | XR ---
Left ankle and left foot HISTORY: Swelling, trauma 3 views the left foot, 3 views of left ankle There is minimal soft tissue swelling. Bone mineralization, joint spaces and alignment are maintained . IMPRESSION: No evident fracture or dislocation of the left foot or ankle.
== END | disposition home or self-care (01) ==
LOC: RADXRMAIN 15:02
PROVIDERS: ATTEND Emergency Medicine
DX: S99.912A Unspecified injury of left ankle, initial encounter (principal); M79.89 Other specified soft tissue disorders

== ENCOUNTER → 2022-03-22 | Outpatient (CLI) | payer OTHER ==
--- NOTE | 2022-03-22 14:39 | XR ---
EXAMINATION TYPE: XR ankle complete LT DATE OF EXAM: 03/22/2022 COMPARISON: NONE HISTORY: Pain FINDINGS: Three views of the ankle demonstrate the ankle mortise to be intact and symmetric. The joint spaces are preserved. The osseous structures are intact. IMPRESSION: 1. No definite acute fracture or dislocation, if symptoms persist follow-up study in 7 to 10 days wou ld be suggested.
--- NOTE | 2022-03-22 14:41 | XR ---
EXAMINATION TYPE: XR foot complete LT DATE OF EXAM: 03/22/2022 COMPARISON: NONE HISTORY: Pain TECHNIQUE: Three views are submitted. FINDINGS: The osseous structures are intact. There is no acute fracture or dislocation. Mild hypertrophic ar thropathy of the first MTP.. IMPRESSION: 1. No acute fracture or dislocation. If symptoms persist, follow-up exam in 7 to 10 days could be ob tained.
== END | disposition home or self-care (01) ==
LOC: RADXRMAIN 14:10
PROVIDERS: ATTEND Emergency Medicine
DX: M79.672 Pain in left foot (principal); M25.572 Pain in left ankle and joints of left foot

== ENCOUNTER 2022-07-28 18:55 | Emergency (ER) | payer OTHER ==
[2022-07-28 19:27] VITALS: TEMP 98.1
--- NOTE | 2022-07-28 20:02 | XR ---
EXAMINATION TYPE: XR chest 2V DATE OF EXAM: 07/28/2022 COMPARISON: NONE HISTORY: Chest pain TECHNIQUE: 2 view FINDINGS: Heart and mediastinum are normal. Lungs are clear. Diaphragm is normal. Bony thorax is inta ct. IMPRESSION: Normal chest. No change.
[2022-07-28] MEDS ORDERED: DEXAMETHASONE SOD PHOSPHATE 10 MG/ML 1 ML VIAL IM STA (21:05)
[2022-07-28] MEDS ORDERED: ACETAMINOPHEN TAB 500 MG TAB PO STA (21:05)
[2022-07-28] MEDS ORDERED: ALBUTEROL HFA INHALER INHALATION STA (21:05)
--- NOTE | 2022-07-28 21:11 | ED ---
URI HPI - General Chief Complaint: Upper Respiratory Infection Stated Complaint: COVID+,SOB Time Seen by Provider: 07/28/22 20:56 Source: patient, RN notes reviewed, old records reviewed Mode of arrival: ambulatory Limitations: no limitations - History of Present Illness Initial Comments: 32-year-old female presents to the emergency room with complaints of cough congestion and fevers and body aches since Sunday. She did test positive for coronavirus. She has not been vaccinated. She has a history of cholecystectomy and anxiety. She used to be a smoker and quit 2 months ago. MD Complaint: cough, nasal congestion, other (body aches) -: days(s) (5) Severity scale (1-10): 10 Quality: aching Consistency: constant Improves With: nothing Context: other (Covid positive on Sunday) - Related Data Home Medications Medication Instructions Recorded Confirmed Acetaminophen Tab [Tylenol Tab] 500 mg PO Q6H PRN 11/09/21 11/11/21 Previous Rx's Medication Instructions Recorded oxyCODONE HCL [OxyIR] 5 mg PO Q6H PRN 3 Days #6 tab 11/10/21 Nitrofurantoin Monohyd/M-Cryst 100 mg PO Q12HR #10 cap 11/11/21 [Macrobid] Albuterol Inhaler [Ventolin Hfa 1 - 2 puff INHALATION Q6H PRN #1 07/28/22 Inhaler] dispenser Allergies Allergy/AdvReac Type Severity Reaction Status Date / Time iodine Allergy Rash/Hives Verified 07/28/22 19:26 Review of Systems ROS Statement: Those systems with pertinent positive or pertinent negative responses have been documented in the HPI. ROS Other: All systems not noted in ROS Statement are negative. Past Medical History Past Medical History: No Reported History Additional Past Medical History / Comment(s): UMBILICAL CYST History of Any Multi-Drug Resistant Organisms: None Reported Past Surgical History: Section, Cholecystectomy, Tonsillectomy Additional Past Anesthesia/Blood Transfusion Reaction / Comment(s): STATES "I BECOME VERY IRRITABLE" Past Psychological History: Anxiety Smoking Status: Current every day smoker Past Alcohol Use History: Heavy, Occasional Past Drug Use History: Marijuana - Past Family History Mother Family Medical History: Deep Vein Thrombosis (DVT) General Exam Limitations: no limitations General appearance: alert, in no apparent distress Head exam: Present: atraumatic, normocephalic Eye exam: Absent: scleral icterus, conjunctival injection, periorbital swelling ENT exam: Present: mucous membranes moist Neck exam: Absent: meningismus Respiratory exam: Present: wheezes. Absent: respiratory distress, rales, rhonchi, stridor, chest wall tenderness, accessory muscle use, decreased breath sounds Cardiovascular Exam: Present: regular rate GI/Abdominal exam: Present: soft. Absent: distended, tenderness, guarding, rebound, rigid Extremities exam: Present: normal capillary refill. Absent: pedal edema, calf tenderness Neurological exam: Present: alert, oriented X3 Psychiatric exam: Present: normal affect, normal mood Skin exam: Present: warm, dry, normal color. Absent: cyanosis, diaphoretic, petechiae, pallor Course Vital Signs 07/28/22 07/28/22 19:23 22:56 Temperature 98.1 F Pulse Rate 90 77 Respiratory 22 15 Rate Blood Pressure 139/78 141/59 O2 Sat by Pulse 96 97 Oximetry Medical Decision Making - Medical Decision Making Patient presents with complaints of being positive for covid. Cough congestion and body aches since Sunday. She has not been vaccinated. Oxygen saturation is 96% on room air. She is afebrile. She is not tachycardic. No calf pain or swelling. PERC negative. Chest x-ray shows no acute cardiopulmonary process. She was given Decadron prior to patient telling me she had gone to urgent care today. She states they prescribed her Paxlovid, prednisone and albuterol today however she is not feeling better. She was encouraged to increase her fluids, take Tylenol for any fevers or body aches. Continue the prednisone as previously prescribed by urgent care along with the Paxlovid and albuterol. Take vitamin C, vitamin D and zinc to help improve immune health. Follow-up with her primary care doctor next week. Case discussed with Dr. Stinson Disposition Clinical Impression: Acute upper respiratory infection Disposition: HOME SELF-CARE Condition: Good Instructions (If sedation given, give patient instructions): Upper Respiratory Infection (ED) Additional Instructions: Use albuterol inhaler 1-2 puffs every 4-6 hours as needed for difficulty breathing or wheezing. Take the prednisone starting Sunday morning once a day for the next 5 days. Take Tylenol as needed for any body aches or fevers. Do not take Motrin while taking prednisone as it will upset your stomach. Take vitamin C, vitamin D and zinc to improve immune health. Increase your fluid intake. Viral illnesses may take up to 2 weeks to recover. Follow-up with the primary care doctor next week. Return to the emergency room with any new or concerning symptoms. Prescriptions: Albuterol Inhaler [Ventolin Hfa Inhaler] 1 - 2 puff INHALATION Q6H PRN #1 dispenser PRN Reason: Wheezing Is patient prescribed a controlled substance at d/c from ED?: No Referrals: None,Stated [Primary Care Provider] - 1-2 days Time of Disposition: 21:28
[2022-07-28 22:57] VITALS: BP 141/59; PULSE 77; RESP 15
== END 2022-07-28 23:03 | disposition home or self-care (01) ==
LOC: EC 18:55
DX: J06.9 Acute upper respiratory infection, unspecified (principal); F17.200 Nicotine dependence, unspecified, uncomplicated; Z91.041 Radiographic dye allergy status; Z90.49 Acquired absence of other specified parts of digestive tract
CPT/HCPCS: 94640; 71046; 99283; 96372; J1100